=== PATIENT | male | born 1955 | race Caucasian/White ===

== ENCOUNTER 2017-12-09 11:33 | Day surgery (SDC) | payer MEDICARE ==
[~2017-12-09] VITALS: Ht 180.3 cm; Wt 136.1 kg
[2017-12-09] VITALS (8 sets, daily range): BP systolic 147–162; BP diastolic 72–92
[~2017-12-09 11:33] MED LIST: ALB0.5UD IH; ALBU6.7H INH; AMLO2.5T2 PO; ATOR40TA PO; DOCU-28 PO; DOCUMENT DATE & TIME OF BETA-BLOCKER PO ONE; FURO-149 PO; GABA-532 PO; HEPA100D36 SQ; INSU100I8 SQ; LISI40TA4 PO; METF500T7 PO; METO50TA17 PO; OXYC-150 PO; POTA20TA19 PO; SYN0.088T PO; WARF10TA50 PO; albuterol 2.5 MG/3 ML nebule NEB ONE; ceFAZolin inj. 3,000 MG in normal saline 100ml IV soln 100 ML IV ONE; famotidine 20mg tablet PO ONE; ringers solution, lacted 1,000 ML IV SCH
[2017-12-09] MEDS ORDERED: ceFAZolin 1000mg inj ONE (13:15)
[2017-12-09 13:31] LABS: BASOPHILS % (AUTO) 0.6 % (0-1); EOSINOPHILS # (AUTO) 0.2 X10'3 (0-0.9); EOSINOPHILS % (AUTO) 2.4 % (0-6); LYMPHOCYTES % (AUTO) 13.6 % (21-51); MEAN CORPUSCULAR HEMOGLOBIN 26.2 PG (27.0-31.0); MEAN CORPUSCULAR HGB CONC 31.6 % (33.0-36.5); MEAN CORPUSCULAR VOLUME 82.8 FL (78-98); MONOCYTES # (AUTO) 0.6 X10'3 (0-0.9); MONOCYTES % (AUTO) 7.8 % (2-12); NEUTROPHILS # (AUTO) 5.7 X10'3 (1.8-7.7); NEUTROPHILS % (AUTO) 75.6 % (42-75); PRE OP HEMATOCRIT 38.5 % (42.0-52.0); PRE OP HEMOGLOBIN 12.2 g/dL (14.0-17.9); PRE OP PLATELET COUNT 308 X10'3 (140-440); RED BLOOD COUNT 4.65 X10'6 (4.70-6.10); RED CELL DISTRIBUTION WIDTH 16.1 % (11.5-14.5)
[2017-12-09] MEDS ORDERED: vancomycin 1,000mg inj ONE (13:42)
[2017-12-09 13:44] LABS: ALBUMIN 3.3 G/DL (3.4-5.0); ALBUMIN/GLOBULIN RATIO 0.8 (1.1-1.5); ALKALINE PHOSPHATASE 195 IU/L (46-116); BLOOD UREA NITROGEN 17 MG/DL (7-18); BUN/CREATININE RATIO 18.3 (5.4-32.0); CALCIUM 8.7 MG/DL (8.5-10.1); CHLORIDE 102 MMOL/L (99-107); CREATININE 0.93 MG/DL (0.60-1.10); PRE OP ALT 28 U/L (30-65); PRE OP ANION GAP 5 (8-16); PRE OP AST 15 U/L (10-37); PRE OP BILIRUB, TOTAL 0.5 MG/DL (0.0-1.0); PRE OP GLUCOSE 104 MG/DL (70-104); PRE OP POTASSIUM 4.2 MMOL/L (3.4-5.1); PRE OP SODIUM 139 MMOL/L (135-145); TOTAL CARBON DIOXIDE 32.1 MMOL/L (24-32); TOTAL PROTEIN 7.6 G/DL (6.4-8.2); eGFR 82 ML/MIN
[2017-12-09 13:45] LABS: HEMOGLOBIN A1C 6.6 % (4.5-6.2)
[2017-12-09] MEDS ORDERED: ringers solution, lacted 1,000 ML IV SCH (13:47)
[2017-12-09 13:48] LABS: PRE OP PROTIME 17.6 SECONDS (9.0-12.0)
[2017-12-09 13:49] LABS: PRE OP INR 1.7 INR
[2017-12-09] MEDS ORDERED: proCHLORperazine 10 MG/2 ml inj IV PRN (13:50)
[2017-12-09] MEDS ORDERED: ondansetron/PF 4mg/2ml inj IV PRN (13:50)
[2017-12-09] MEDS ORDERED: morphine 4 MG/ML inj SYRINge IV PRN ×2 (13:50)
[2017-12-09] MEDS ORDERED: meperidine/PF 25mg/ml syringe IV PRN ×3 (13:50)
[2017-12-09] MEDS ORDERED: fentaNYL/PF 50MCG/1 ML 2ML syringe ONE (13:54)
[2017-12-09] MEDS ORDERED: midazolam 2 mg/2 ml injection ONE (13:54)
[2017-12-09] MEDS ORDERED: tobramycin sulfate 1.2gm vial IR ONE (13:55)
[2017-12-09] MEDS ORDERED: LIDOcaine 2% (20mg/ml) 5ml vial ONE (13:56)
[2017-12-09] MEDS ORDERED: succinylcholine 20mg/ml inj IV ONE (13:56)
[2017-12-09] MEDS ORDERED: propofol inj 20 ML IV ONE (13:56)
[2017-12-09] MEDS ORDERED: ketamine 50mg/5ml syringe ONE (14:16)
[2017-12-09] MEDS ORDERED: flumazenil 0.1 mg/ml inj. IV ONE (14:54)
[2017-12-09] MEDS ORDERED: tobramycin 40mg/ml inj IV SCH (16:00)
== END 2017-12-09 16:10 | disposition home or self-care (01) ==
LOC: PRE-OP 11:33 → PAS 16:10
PROVIDERS: ATTEND Surgery
DX: T81.49XA Infection following a procedure, other surgical site, initial encounter (principal); T87.44 Infection of amputation stump, left lower extremity; Y83.8 Other surgical procedures as the cause of abnormal reaction of the patient, or of later complication, without mention of misadventure at the time of the procedure; Y92.89 Other specified places as the place of occurrence of the external cause; I45.2 Bifascicular block; J44.9 Chronic obstructive pulmonary disease, unspecified; E03.9 Hypothyroidism, unspecified; E66.01 Morbid (severe) obesity due to excess calories; E11.9 Type 2 diabetes mellitus without complications; I11.0 Hypertensive heart disease with heart failure; I50.9 Heart failure, unspecified; E78.5 Hyperlipidemia, unspecified; F10.21 Alcohol dependence, in remission; Z79.84 Long term (current) use of oral hypoglycemic drugs; Z79.4 Long term (current) use of insulin; Z79.891 Long term (current) use of opiate analgesic; Z89.612 Acquired absence of left leg above knee; Z79.01 Long term (current) use of anticoagulants; Z68.41 Body mass index [BMI] 40.0-44.9, adult; Z99.81 Dependence on supplemental oxygen; Z90.49 Acquired absence of other specified parts of digestive tract; Z96.651 Presence of right artificial knee joint; Z93.3 Colostomy status; Z86.711 Personal history of pulmonary embolism; Z79.899 Other long term (current) drug therapy; Z98.890 Other specified postprocedural states
CPT/HCPCS: 11981; 36415; 71045; 80053; 83036; 84443; 85025; 85610; 85730; 86885; 86900; 86901; 93005; 97605; C1713; J0330; J0690; J2001; J2250; J2704; J3010; J3260; J3370; J3490; J7030; J7120; A7000